=== PATIENT | female | born 1975 | race Caucasian/White ===

== ENCOUNTER 2016-11-21 08:00 | Outpatient (CLI) | payer OTHER | END 2016-11-21 08:01 | disposition home or self-care (01) | DX: R30.0 Dysuria (principal) ==

== ENCOUNTER 2017-03-24 10:17 | Outpatient (CLI) | payer OTHER ==
--- NOTE | 2017-03-25 17:39 | Mammography Report ---
DIGITAL SCREENING MAMMOGRAM: 03/24/2017 CLINICAL INDICATION: A 41-year-old with history of bilateral implants, history of benign right breas t biopsy for screening. COMPARISON: 11/2014 TECHNIQUE: Routine CC and MLO projections as well as bilateral implant displaced views were obtained of the breasts. The breasts demonstrate scattered fibroglandular densities bilaterally. Punctate, typically benign c alcifications are present. Bilateral subglandular saline implants are stable. No suspicious masses, clustered microcalcifications, or regions of architectural distortion are identified. IMPRESSION: BENIGN FINDINGS. RECOMMENDATION: ROUTINE ANNUAL SCREENING UNLESS OTHERWISE CLINICALLY INDICATED. BIRADS CATEGORY: 2, BENIGN FINDINGS. STANDARD QUALIFYING STATEMENTS 1. This examination was reviewed with the aid of Computed-Aided Detection (CAD). 2. A negative or benign imaging report should not delay biopsy if clinically suspicious findings are present. Consider surgical consultation if warranted. More than 5% of cancers are not identified b y imaging. 3. Dense breasts may obscure an underlying neoplasm. JOB #: [id number] EXT JOB #:[id number]
== END 2017-03-24 10:18 | disposition home or self-care (01) ==
LOC: DI.N 10:17
PROVIDERS: ATTEND Family Medicine
DX: Z12.31 Encounter for screening mammogram for malignant neoplasm of breast (principal)
CPT/HCPCS: 77067

== ENCOUNTER 2017-05-18 16:08 | Outpatient (CLI) | payer OTHER ==
[2017-05-18 12:49] LABS: BASOPHILS # (AUTO) 0.1 10^3/uL (0.0-0.1); BASOPHILS % (AUTO) 1.1 %; EOSINOPHILS # (AUTO) 0.1 10^3/uL (0.0-0.7); EOSINOPHILS % (AUTO) 2.2 %; LYMPHOCYTES # (AUTO) 2.3 10^3/uL (1.5-3.5); LYMPHOCYTES % (AUTO) 33.8 %; MEAN CORPUSCULAR HEMOGLOBIN 30.1 pg (27.0-31.0); MEAN CORPUSCULAR HGB CONC 34.2 g/dL (32.0-36.0); MONOCYTES # (AUTO) 0.5 10^3/uL (0.0-1.0); MONOCYTES % (AUTO) 7.6 %; NEUTROPHILS # (AUTO) 3.8 10^3/uL (1.5-6.6); NEUTROPHILS % (AUTO) 55.3 %; RED BLOOD COUNT 4.66 10^6/uL (4.20-5.40); UNCORRECTED WHITE BLOOD COUNT 6.9 x10^3/uL; WHITE BLOOD COUNT 6.9 x10^3/uL (4.8-10.8)
[2017-05-18 12:59] LABS: H. PYLORI IGG ANTIBODY POSITIVE (Negative); HPYLORI NEG QC Negative (Negative); HPYLORI POS QC POSITIVE (Positive)
[2017-05-18 13:18] LABS: ALBUMIN/GLOBULIN RATIO 1.3 (1.0-2.2); BILIRUBIN,TOTAL 0.6 mg/dL (0.2-1.0); BUN - BLOOD UREA NITROGEN 13 mg/dL (6-20); CALCIUM 8.9 mg/dL (8.5-10.3); CARBON DIOXIDE - CO2 24 mmol/L (21-32); CHLORIDE 107 mmol/L (101-111); CHOL/HDL RATIO 3.3 (<4.4); CHOLESTEROL 176 mg/dL; CREATININE 0.8 mg/dL (0.4-1.0); GFR - MDRD 78 (>89); GLUCOSE 105 mg/dL (70-100); HDL CHOLESTEROL 53 mg/dL; LDL/HDL RATIO 1.9 (<4.4); SODIUM 138 mmol/L (135-145); TOTAL PROTEIN 7.3 g/dL (6.7-8.2); TRIGLYCERIDES 115 mg/dL; VLDL CHOLESTEROL 23 mg/dL
== END 2017-05-18 16:09 | disposition home or self-care (01) ==
LOC: LAB.WCP 16:08
PROVIDERS: ATTEND Family Medicine
DX: Z00.00 Encounter for general adult medical examination without abnormal findings (principal); K21.9 Gastro-esophageal reflux disease without esophagitis
CPT/HCPCS: 36415; 80053; 80061; 84443; 85025; 87339

== ENCOUNTER 2018-10-08 08:00 | Outpatient (CLI) | payer OTHER ==
[2018-10-08 18:53] LABS: BASOPHILS # (AUTO) 0.1 10^3/uL (0.0-0.1); BASOPHILS % (AUTO) 0.6 %; EOSINOPHILS # (AUTO) 0.1 10^3/uL (0.0-0.7); EOSINOPHILS % (AUTO) 1.6 %; HGB - HEMOGLOBIN 14.8 g/dL (12.0-16.0); LYMPHOCYTES # (AUTO) 2.9 10^3/uL (1.5-3.5); LYMPHOCYTES % (AUTO) 30.5 %; MEAN CORPUSCULAR HEMOGLOBIN 30.8 pg (27.0-31.0); MEAN CORPUSCULAR HGB CONC 34.1 g/dL (32.0-36.0); MEAN CORPUSCULAR VOLUME 90.1 fL (81.0-99.0); MEAN PLATELET VOLUME 9.2 fL (7.9-10.8); MONOCYTES # (AUTO) 0.7 10^3/uL (0.0-1.0); MONOCYTES % (AUTO) 7.1 %; NEUTROPHILS # (AUTO) 5.6 10^3/uL (1.5-6.6); NEUTROPHILS % (AUTO) 60.2 %; PLT - PLATELET COUNT 246 10^3/uL (130-450); RED CELL DISTRIBUTION WIDTH 12.8 % (12.0-15.0); WHITE BLOOD COUNT 9.3 x10^3/uL (4.8-10.8)
[2018-10-08 19:34] LABS: ALBUMIN 4.2 g/dL (3.2-5.5); ALBUMIN/GLOBULIN RATIO 1.4 (1.0-2.2); BILIRUBIN,TOTAL 0.3 mg/dL (0.2-1.0); CALCIUM 8.8 mg/dL (8.5-10.3); CREATININE 0.7 mg/dL (0.4-1.0); TOTAL PROTEIN 7.2 g/dL (6.7-8.2)
[2018-10-08 19:58] LABS: HB2 TOTAL 15.4 g/dL; HEMOGLOBIN A1C 0.46 g/dL; HEMOGLOBIN A1C % 4.9 % (4.6-6.2)
[2018-10-09 11:42] LABS: HIV AG/AB 4TH GEN NON-REACTIVE (NON-REACTIVE)
== END 2018-10-08 23:59 | disposition home or self-care (01) ==
LOC: LAB.WCP 08:00
PROVIDERS: ATTEND Internal Medicine Gastroenterology
DX: Z13.1 Encounter for screening for diabetes mellitus (principal); Z77.21 Contact with and (suspected) exposure to potentially hazardous body fluids; Z11.3 Encounter for screening for infections with a predominantly sexual mode of transmission; E66.9 Obesity, unspecified
CPT/HCPCS: 36415; 80053; 81599; 83036; 83690; 85025; 87389

== ENCOUNTER 2018-10-28 11:07 | Day surgery (SDC) | payer BC ==
[2018-10-28] MEDS ORDERED: LACTATED RINGERS 1,000 ML IV ONE ×2 (12:00→13:00)
[2018-10-28] MEDS ORDERED: LIDO GARGLE 30 ML BOTTLE ONE (12:56)
[2018-10-28] MEDS ORDERED: fentaNYL 250 MCG/5 ML VIAL IVP ONE (13:00)
[2018-10-28] MEDS ORDERED: MIDAZOLAM 2 MG/2 ML VIAL IVP ONE (13:00)
[2018-10-28] MEDS ORDERED: LIDO GARGLE 30 ML BOTTLE PO ONE (13:05)
[2018-10-28 14:29] VITALS: BP 103/62
== END 2018-10-28 11:08 | disposition home or self-care (01) ==
LOC: SDS 11:07
PROVIDERS: ATTEND Internal Medicine Gastroenterology
PROC: 0DBK8ZZ Excision of Ascending Colon, Via Natural or Artificial Opening Endoscopic (ICD-10-PCS; 2018-10-28)
PROC: 0DB98ZX Excision of Duodenum, Via Natural or Artificial Opening Endoscopic, Diagnostic (ICD-10-PCS; principal; 2018-10-28 12:30)
PROC: 0DB38ZX Excision of Lower Esophagus, Via Natural or Artificial Opening Endoscopic, Diagnostic (ICD-10-PCS; 2018-10-28 12:30)
DX: Z12.11 Encounter for screening for malignant neoplasm of colon (principal); K21.0 Gastro-esophageal reflux disease with esophagitis; R10.13 Epigastric pain; D12.2 Benign neoplasm of ascending colon
CPT/HCPCS: 43239; 45380; A9270; J3010; J7120

== ENCOUNTER 2018-10-29 08:04 | Outpatient (CLI) | payer BC ==
--- NOTE | 2018-11-01 09:45 | Mammography Report ---
Reason: SCREENING MAMMO Procedure Date: 10/29/2018 Accession Number: [id number] / [id number] Procedure: [facility] - Screening Mammo Dig w/Implants CPT Code: FULL RESULT: EXAM: Screening Mammo Dig w/Implants DATE: 10/29/2018 8:43 AM CLINICAL HISTORY: Screening encounter. History of breast augmentation with saline implants in 2006. No reported risk factors. TECHNIQUE: Bilateral CC and MLO views were obtained. In standard fashion and implant displaced technique. COMPARISON: 03/24/2017 and 11/13/2014. FINDINGS: The breasts demonstrate scattered fibroglandular densities bilaterally. The bilateral prepectoral breast implants appear stable. There are coarse typically benign calcifications, stable. No suspicious masses, clustered microcalcifications, or regions of architectural distortion are identified. IMPRESSION: Benign findings RECOMMENDATION: Routine annual screening unless otherwise clinically indicated. BIRADS CATEGORY 2: Benign findings STANDARD QUALIFYING STATEMENTS: 1. This examination was reviewed with the aid of Computer-Aided Detection (CAD). 2. A negative or benign imaging report should not preclude biopsy if clinically suspicious findings are present. 3. Dense breasts may obscure an underlying neoplasm. 4. This examination was reviewed without the aid of 3D breast imaging (tomosynthesis).
== END 2018-10-29 08:05 | disposition home or self-care (01) ==
LOC: DI.N 08:04
DX: Z12.31 Encounter for screening mammogram for malignant neoplasm of breast (principal)
CPT/HCPCS: 77067

== ENCOUNTER 2021-02-18 09:10 | Outpatient (CLI) | payer BC | END 2021-02-18 23:59 | disposition home or self-care (01) | LOC: LAB.WCP 09:10 | PROVIDERS: ATTEND Family Medicine | DX: Z20.822 Contact with and (suspected) exposure to COVID-19 (principal); Z12.11 Encounter for screening for malignant neoplasm of colon ==

== ENCOUNTER 2021-03-07 05:00 | Outpatient (CLI) | payer BC | END 2021-03-07 23:59 | disposition home or self-care (01) | LOC: LAB.WCP 05:00 | PROVIDERS: ATTEND Nurse Practitioner Family | DX: Z20.822 Contact with and (suspected) exposure to COVID-19 (principal) ==

== ENCOUNTER 2022-04-01 15:16 | Outpatient (CLI) | payer BC ==
--- NOTE | 2022-04-01 16:56 | Ultrasound Report ---
PROCEDURE: Pelvic w/Transvaginal INDICATIONS: PELVIC PAIN TECHNIQUE: Real-time scanning was performed of the pelvic organs, with image documentation. Additional endovagi nal scanning was necessary due to incomplete visualization of the adnexal and endometrial structures by transabdominal scanning. COMPARISON: CT abdomen and pelvis with contrast, 11/24/2013. FINDINGS: Uterus: Surgically absent. Ovaries: The right ovary measures 2.0 x 2.0 x 2.5 cm, with a calculated ovarian volume of 5.23 cc. The left ovary measures 2.9 x 1.5 x 1.5 cm, with a calculated ovarian volume of 1.13 cc. The ovaries have a normal sonographic appearance. Less than 12 follicles can be seen in each ovary. No adnexal masses are seen. Other: No pathologic free abdominal or pelvic fluid. IMPRESSION: 1. A cause for pelvic pain is not identified on pelvic ultrasound. 2. Normal ovaries. 3. Hysterectomy. 4. No free fluid in pelvis. Reviewed by: Yogi Carmona MD on 04/01/2022 4:54 PM PDT Approved by: Yogi Carmona MD on 04/01/2022 4:54 PM PDT Station ID: [id number]
== END 2022-04-01 15:17 | disposition home or self-care (01) ==
LOC: DI 15:16
PROVIDERS: ATTEND Family Medicine
DX: R10.2 Pelvic and perineal pain (principal)

== ENCOUNTER 2023-02-26 15:05 | Outpatient (CLI) | payer BC ==
--- NOTE | 2023-02-26 16:31 | XRAY Report ---
PROCEDURE: Femur 2V LT INDICATIONS: DISORDERS OF THE SKIN TECHNIQUE: 4 views of the femur were acquired. COMPARISON: None. FINDINGS: Bones: No fractures or dislocations. No suspicious bony lesions. Degenerative changes of the left h ip. Soft tissues: No suspicious soft tissue calcifications or masses. IMPRESSION: No acute abnormality of the left femur. Reviewed by: Hernandez Mendez on 02/26/2023 4:29 PM PDT Approved by: Hernandez Mendez on 02/26/2023 4:29 PM PDT Station ID: [id number]
--- NOTE | 2023-02-26 19:04 | Ultrasound Report ---
PROCEDURE: Ext Limited Non Vascular INDICATIONS: LEFT LATERAL THIGH NEW INDENTATION TECHNIQUE: Real-time scanning was performed of the left thigh, with image documentation. COMPARISON: None. FINDINGS: Focused ultrasound examination of left lateral thigh at patient's reported area of indenta tion shows no discrete soft tissue mass or fluid collection. IMPRESSION: No abnormality is seen in left lateral thigh. Reviewed by: Mayito Keita MD on 02/26/2023 6:03 PM OWEN Approved by: Mayito Keita MD on 02/26/2023 6:03 PM [id number] Station ID: [id number]
== END 2023-02-26 15:06 | disposition home or self-care (01) ==
LOC: DI 15:05
PROVIDERS: ATTEND Physician Assistant
DX: L98.8 Other specified disorders of the skin and subcutaneous tissue (principal)

== ENCOUNTER 2023-10-18 07:29 | Outpatient (CLI) | payer OTHER ==
[2023-10-18 08:15] LABS: BASOPHILS # (AUTO) 0.1 10^3/uL (0.0-0.1); BASOPHILS % (AUTO) 0.9 %; EOSINOPHILS # (AUTO) 0.2 10^3/uL (0.0-0.7); EOSINOPHILS % (AUTO) 3.3 %; HCT - HEMATOCRIT 43.7 % (37.0-47.0); HGB - HEMOGLOBIN 15.3 g/dL (12.0-16.0); LYMPHOCYTES # (AUTO) 2.2 10^3/uL (1.5-3.5); LYMPHOCYTES % (AUTO) 31.8 %; MEAN CORPUSCULAR HEMOGLOBIN 31.2 pg (27.0-31.0); MEAN CORPUSCULAR VOLUME 89.2 fL (81.0-99.0); MEAN PLATELET VOLUME 9.6 fL (7.9-10.8); MONOCYTES # (AUTO) 0.5 10^3/uL (0.0-1.0); NEUTROPHILS % (AUTO) 56.7 %; PLT - PLATELET COUNT 278 10^3/uL (130-450); RED CELL DISTRIBUTION WIDTH 12.5 % (12.0-15.0)
[2023-10-18 08:40] LABS: CHOL/HDL RATIO 3.8 (<4.4); CHOLESTEROL 178 mg/dL; HDL CHOLESTEROL 47 mg/dL; LDL CHOLESTEROL,CALCULATED 114 mg/dL; LDL/HDL RATIO 2.4 (<4.4); TRIGLYCERIDES 84 mg/dL (48-352); VLDL CHOLESTEROL 17 mg/dL
[2023-10-18 08:57] LABS: THYROID STIMULATING HORMONE 0.73 uIU/mL (0.34-5.60)
[2023-10-20 00:09] LABS: HBsAG SCREEN Negative (Negative); HEPATITIS B SURFACE AB QUANT 4.1 mIU/mL (Immunity>9.9)
[2023-10-20 09:09] LABS: MEASLES ANTIBODIES IGG 77.9 AU/mL (Immune >16.4); MUMPS ANTIBODIES IGG 97.2 AU/mL (Immune >10.9); VARICELLA-ZOSTER AB IGG 2972 index (Immune >165)
== END 2023-10-18 07:30 | disposition home or self-care (01) ==
LOC: LAB 07:29
PROVIDERS: ATTEND Family Medicine
DX: Z00.00 Encounter for general adult medical examination without abnormal findings (principal); E78.6 Lipoprotein deficiency; R79.89 Other specified abnormal findings of blood chemistry; Z11.59 Encounter for screening for other viral diseases; R76.0 Raised antibody titer; Z13.9 Encounter for screening, unspecified; Z13.29 Encounter for screening for other suspected endocrine disorder
CPT/HCPCS: 36415; 80061; 81599; 83001; 83721; 84443; 85025; 86317; 86480; 86735; 86762; 86765; 86787; 87340

== ENCOUNTER 2023-10-31 10:08 | Outpatient (CLI) | payer OTHER ==
--- NOTE | 2023-11-01 18:17 | XRAY Report ---
PROCEDURE: Chest 2V INDICATIONS: NONSPECIFIC REACTION TO CELL MEDIATED IMMUNITY TECHNIQUE: 2 views of the chest were acquired. COMPARISON: None. FINDINGS: Surgical changes and devices: None. Lungs and pleura: No pleural effusions or pneumothorax. Lungs are clear. Mediastinum: Mediastinal contours appear normal. Heart size is normal. Bones and chest wall: No suspicious bony lesions. Overlying soft tissues appear unremarkable. IMPRESSION: No acute cardiopulmonary process. Reviewed by: Ryan Aguilar MD on 11/01/2023 6:16 PM PST Approved by: Ryan Aguilar MD on 11/01/2023 6:16 PM PST Station ID: [id number]
== END 2023-10-31 10:09 | disposition home or self-care (01) ==
LOC: DI 10:08
PROVIDERS: ATTEND Family Medicine
DX: R76.12 Nonspecific reaction to cell mediated immunity measurement of gamma interferon antigen response without active tuberculosis (principal)